=== PATIENT | female | born 1985 | race Caucasian/White ===

== ENCOUNTER 2018-11-10 08:49 | Day surgery (SDC) | payer BC ==
[2018-11-10 09:26] VITALS: BP 141/70; TEMP 98.6
[2018-11-10 09:32] VITALS: BMI 40.6
[2018-11-10 10:33] LABS: #Eosinphils 0.1 thou/uL (0.0-0.7); #Lymphocytes 1.7 thou/uL (1.20-3.40); #Monocytes 0.7 thou/uL (0.11-0.59); #Neutrophils 8.7 thou/uL (1.40-6.50); %Basophils 0.2 % (0.0-1.0); %Eosinophils 0.5 % (0.0-10.0); %Lymphocytes 15.3 % (21.0-51.0); %Monocytes 6.5 % (0.0-10.0); %Neutrophils 77.6 % (42.0-75.0); Hemoglobin 11.2 g/dL (12.0-16.0); Mean Corpuscular Hemoglobin 29.1 pg (27.0-31.0); Mean Corpuscular Volume 85.7 fL (78.0-98.0); Mean Platelet Volume 8.1 fL (7.4-10.4); Platelet Count 259 thou/uL (130-400); RBC Distribution Width 11.6 % (11.5-14.5); Red Blood Cell (RBC) Count 3.86 mill/uL (4.20-5.40); White Blood Cell (WBC) Count 11.2 thou/uL (4.8-10.8)
[2018-11-10 10:42] LABS: Creatinine, Urine 142.1 mg/dL (47-110)
[2018-11-10 10:50] LABS: ALT (SGPT) 7 U/L (8-55); AST (SGOT) 12 U/L (5-34); Albumin 3.1 g/dL (3.5-5.0); Alkaline Phosphatase 83 U/L (40-150); Anion Gap 10 mmol/L (10-20); BUN (Urea Nitrogen) 8 mg/dL (7.0-18.7); Bilirubin, Total 0.3 mg/dL (0.2-1.2); Calc. Creatinine Clearance 205 mL/min (70-130); Calcium 8.7 mg/dL (7.8-10.44); Carbon Dioxide 25 mmol/L (22-29); Chloride 107 mmol/L (98-107); Estimated GFR-MDRD Greater than 90; Globulin 2.6 g/dL (2.4-3.5); Glucose 83 mg/dL (70-105); Potassium 4.1 mmol/L (3.5-5.1); Protein, Total 5.7 g/dL (6.0-8.3); Sodium 138 mmol/L (136-145)
--- NOTE | 2018-11-10 11:06 | PDOC.LDHP ---
Labor and Delivery H&P Chief complaint: other (elevated blood pressure) HPI: 33 y/o at 33w1d, patient of Dr. Barksdale, presents with elevated BPs at work. Patient reports they were 160s systolic at work so she came in to be evaluated. Denies VB, LOF, ctx, MORROW, vision changes, RUQ pain or other concerns. +FM ROS neg for HEENT, cv, pulm, gi, gu, neuro, psych, skin, musculoskeletal or constitutional symptoms other than mentioned above. OB History Details: 2 prior LTCS at term, uncomplicated pregnancies Current complications: none Past Medical History: None Previous surgical history: low tranverse CS (x2,), cholecystectomy, other ( gastric sleeve, knee surgery) Allergies/Adverse Reactions: Allergies Allergy/AdvReac Type Severity Reaction Status Date / Time No Known Allergies Allergy Unverified 11/10/18 09:31 Social history: none - Physical Exam Vital signs reviewed and normal: yes Abnormal vital signs: normal to mild range BPs General: NAD, resting Lungs: nonlabored breathing Abdomen: gravid Extremeties: no edema FHT: category 1 (130s, mod variability, + accels, no decels) [place] contractions every: none - Assessment 33 y/o at 33w1d with gestational hypertension, no e/o preeclampsia at this time. Labs wnl. status reassuring with reactive NST. - Plan -: D/c home with precautions. Advised to keep all appointments.
== END 2018-11-10 11:25 | disposition home or self-care (01) ==
LOC: L&D/OP 08:49
PROVIDERS: ATTEND Obstetrics & Gynecology
DX: O13.3 Gestational [pregnancy-induced] hypertension without significant proteinuria, third trimester (principal); Z79.899 Other long term (current) drug therapy; Z3A.33 33 weeks gestation of pregnancy
CPT/HCPCS: 36415; 80053; 82570; 84156; 85025; 99284

== ENCOUNTER 2018-12-15 10:42 | Inpatient (IN) | payer BC ==
[2018-12-15 11:11] VITALS: BMI 41.6
[2018-12-15] MEDS ORDERED: Acetaminophen 325 MG TAB PO SCH (12:15)
[2018-12-15 13:08] LABS: Mean Corpuscular HGB CONC 33.6 g/dL (32.0-36.0); Mean Corpuscular Hemoglobin 28.2 pg (27.0-31.0); Mean Corpuscular Volume 83.7 fL (78.0-98.0); Platelet Count 223 thou/uL (130-400); RBC Distribution Width 12.1 % (11.5-14.5); Red Blood Cell (RBC) Count 3.92 mill/uL (4.20-5.40); White Blood Cell (WBC) Count 9.7 thou/uL (4.8-10.8)
[2018-12-15 13:31] LABS: ALT (SGPT) 10 U/L (8-55); AST (SGOT) 17 U/L (5-34); Albumin 3.2 g/dL (3.5-5.0); Alkaline Phosphatase 109 U/L (40-150); Anion Gap 12 mmol/L (10-20); BUN (Urea Nitrogen) 9 mg/dL (7.0-18.7); Bilirubin, Total 0.3 mg/dL (0.2-1.2); Calc. Creatinine Clearance 181 mL/min (70-130); Calcium 8.9 mg/dL (7.8-10.44); Carbon Dioxide 22 mmol/L (22-29); Chloride 108 mmol/L (98-107); Estimated GFR-MDRD 82; Globulin 2.7 g/dL (2.4-3.5); Glucose 71 mg/dL (70-105); Potassium 4.3 mmol/L (3.5-5.1); Protein, Total 5.9 g/dL (6.0-8.3); Sodium 138 mmol/L (136-145)
[2018-12-15 14:08] LABS: Bilirubin Negative (Negative); Blood, Urine Negative (Negative); Clarity CLEAR (Clear); Glucose, Urine (Dipstick) Negative (Negative); Leukocyte Negative (Negative); Nitrite Negative (Negative); Protein, Urine (Dipstick) Negative (Neg-Trace); Specific Gravity, Urine 1.012 (1.002-1.036); Urobilinogen 0.2 mg/dL (0.2-1.0)
[2018-12-15] MEDS: Lactated Ringer's 1,000 ML IV SCH (16:10)
[2018-12-15] MEDS ORDERED: ePHEDrine 50 MG/ML VIAL ONE (16:20)
[2018-12-15] MEDS ORDERED: Meperidine HCl/PF 25 MG/ML VIAL IM/IV PRN (16:41)
[2018-12-15] MEDS ORDERED: Butorphanol Tartrate 1 MG/ML VIAL SLOW IVP PRN (16:41)
[2018-12-15] MEDS ORDERED: Zolpidem Tartrate 5 MG TAB PO PRN (16:41)
[2018-12-15] MEDS ORDERED: Ondansetron PF 4 MG/2 ML Vial IVP PRN ×2 (16:41→21:31)
[2018-12-15] MEDS ORDERED: Acetaminophen 500 MG TAB PO PRN (16:41)
[2018-12-15] MEDS ORDERED: Promethazine HCl 25 MG/ML VIAL IM PRN ×2 (16:41→21:31)
[2018-12-15] MEDS ORDERED: Bicitra 30 ML UDCUP ONE (21:01)
[2018-12-15] MEDS ORDERED: Ondansetron HCl/PF 4 MG/2 ML Vial IVP PRN (21:31)
[2018-12-15] MEDS ORDERED: Promethazine HCl 25 MG SUPP PR PRN (21:31)
[2018-12-15] MEDS ORDERED: Hydrocerin (Eucerin) Cream 120 gm Jar TOP PRN (21:31)
[2018-12-15] MEDS ORDERED: diphenhydrAMINE 50 MG/ML VIAL IVP PRN (21:31)
[2018-12-15] MEDS ORDERED: Naloxone HCl 0.4 mg/ml Vial IV PRN (21:31)
[2018-12-15] MEDS ORDERED: Naloxone HCl 0.4 mg/ml Vial IVP PRN ×2 (21:31)
[2018-12-15] MEDS ORDERED: Oxytocin 10 UNITS/ML VIAL ONE (21:32)
[2018-12-15] MEDS ORDERED: MORPHINE 5 MG/10 ML PF VIAL ONE (21:32)
[2018-12-15] MEDS ORDERED: Acetaminophen 1,000 MG in Premix Bag 1 BAG IVPB PRN (21:32)
[2018-12-15] MEDS ORDERED: ePHEDrine/0.9% NaCl/PF SYRINGE 50 mg/10 ml ONE (21:32)
[2018-12-15] MEDS ORDERED: Ondansetron PF 4 MG/2 ML Vial ONE (21:32)
--- NOTE | 2018-12-15 21:37 | HP ---
REGULAR PHYSICIAN: Brandan Barksdale MD. EVALUATING PHYSICIAN: Warren Baugh MD CHIEF COMPLAINT: Elevated blood pressures in the office. HISTORY OF PRESENT ILLNESS: Ms. Carlson is a 33-year-old white G4, P3-0-0-3 with an estimated date of confinement of 12/28/2018, who presents from Dr. Barksdale's office with blood pressures to 170s there. She states she has had a mild headache over the last 4 days despite taking Tylenol. She denies right upper quadrant pain or visual changes. She also denies loss of fluid, bleeding, or contractions. Her care has been with Dr. Barksdale without significant complications. PAST OBSTETRICAL HISTORY: Includes 3 previous C-sections at term. PAST MEDICAL HISTORY: None. PAST SURGICAL HISTORY: x3, tonsillectomy, surgery to her right knee, gastric sleeve placement, and cholecystectomy. CURRENT MEDICATIONS: vitamins. ALLERGIES: NO KNOWN ALLERGIES. SOCIAL HISTORY: Denies tobacco, alcohol, or drug use. FAMILY HISTORY: Unremarkable. REVIEW OF SYSTEMS: Positive for mild headache. Negative for visual changes, right upper quadrant pain, nausea, vomiting, fever, chills, ruptured membranes, or vaginal bleeding. PHYSICAL EXAMINATION: VITAL SIGNS: Initial blood pressure in triage is 172/90. Subsequent pressures are 131/59, 132/68, 123/63, and 125/65. She is afebrile. GENERAL: She is in no acute distress. CHEST: Clear to auscultation. CARDIOVASCULAR: Regular rate and rhythm. ABDOMEN: Soft, nontender, and gravid. PELVIC: Deferred. heart rate tracing is reassuring with spontaneous accelerations. There are no decelerations. No significant uterine contractions are seen. LABORATORY DATA: White count 9.7, hemoglobin and hematocrit of 11.0 and 32.8, platelet count 223,000. Significant chemistries, creatinine 0.80, glucose 71, total bilirubin 0.3, AST and ALT are 17 and 10 respectively. ASSESSMENT: 1. 38-week intrauterine . 2. Three previous C-sections. 3. Labile blood pressure at term. PLAN: I have discussed the results with Dr. Barksdale. He will move toward delivery and schedule a time for her repeat section. Job ID: [id number]
[2018-12-15] MEDS ORDERED: Ketorolac Tromethamine 30 MG/ML VIAL IVP SCH (21:45)
[2018-12-15] MEDS ORDERED: Communication Order-Pharmacy FS SCH (21:45)
[2018-12-15] MEDS ORDERED: PHENYLEPHRINE-NS 100 MCG/ML 10 ML SYRINGE ONE (22:19)
[2018-12-15] MEDS ORDERED: Fentanyl 100 MCG/2 ML VIAL ONE (23:01)
[2018-12-16] MEDS ORDERED: Ketorolac Tromethamine 30 MG/ML VIAL ONE (00:29)
[2018-12-16] MEDS: Ketorolac Tromethamine 30 MG/ML VIAL IVP SCH ×4 (00:35→18:12)
[2018-12-16 00:58] LABS: Hemoglobin 11.3 g/dL (12.0-16.0); Mean Corpuscular HGB CONC 33.8 g/dL (32.0-36.0); Mean Corpuscular Hemoglobin 28.3 pg (27.0-31.0); Mean Corpuscular Volume 83.6 fL (78.0-98.0); Mean Platelet Volume 9.5 fL (7.4-10.4); Platelet Count 215 thou/uL (130-400); RBC Distribution Width 12.1 % (11.5-14.5); Red Blood Cell (RBC) Count 3.99 mill/uL (4.20-5.40); White Blood Cell (WBC) Count 11.4 thou/uL (4.8-10.8)
[2018-12-16] MEDS ORDERED: NS / Oxytocin 40 units/1000ml 1,000 ML ONE (01:13)
[2018-12-16 01:35] LABS: HBSAg Index 0.34 S/CO (0-0.99); Hep B Surf Ag Non-Reactive S/CO (NonReactive)
[2018-12-16] MEDS: Lactated Ringer's 1,000 ML IV SCH (03:37)
[2018-12-16 04:13] LABS: Syphilis Antibody Nonreactive (Nonreactive); Syphilis Antibody Index 0.02 S/CO (<1.00 Non-Reactive)
[2018-12-16] MEDS ORDERED: Meperidine HCl/PF 25 MG/ML VIAL IM/IV PRN (09:00)
[2018-12-16] MEDS ORDERED: Butorphanol Tartrate 1 MG/ML VIAL SLOW IVP PRN (09:00)
[2018-12-16] MEDS: Enoxaparin Sodium 40 MG/0.4 ML SYRINGE SC SCH (09:11)
[2018-12-16] MEDS ORDERED: Bisacodyl 10 MG SUPP PR PRN (09:18)
[2018-12-16] MEDS ORDERED: Zolpidem Tartrate 5 MG TAB PO PRN (09:18)
[2018-12-16] MEDS ORDERED: Simethicone Chewable 80 MG TAB PO PRN (09:18)
[2018-12-16] MEDS ORDERED: Ondansetron PF 4 MG/2 ML Vial IVP PRN (09:18)
[2018-12-16] MEDS ORDERED: Varicella virus, LIVE 0.5 ML VIAL SC ONE (09:18)
[2018-12-16] MEDS ORDERED: Promethazine HCl 25 MG/ML VIAL IM PRN (09:18)
[2018-12-16] MEDS ORDERED: Measles/Mumps/Rubella 10 MCG/0.5 ML VIAL SC ONE (09:18)
[2018-12-16] MEDS ORDERED: Lanolin Ointment 7 GM TUBE TOP PRN (09:18)
[2018-12-16] MEDS ORDERED: diphenhydrAMINE 25 MG CAP PO PRN (09:18)
[2018-12-16] MEDS ORDERED: Adacel (T-DAP) 0.5 ML SYRINGE IM ONE (09:18)
--- NOTE | 2018-12-16 09:20 | PDOC.PP ---
Post Progress Note Post Day #: 1 PO intake tolerated: yes Flatus: no Ambulation: no Vital Signs (12 hours) Temp Pulse Resp BP Pulse Ox 12/16/18 08:28 98.2 F 66 20 110/56 L 97 12/16/18 03:00 98.1 F 69 18 125/58 L 96 12/16/18 01:45 98.2 F 70 18 121/87 Weight Weight 258 lb - Physical Examination General: NAD Cardiovascular: no m/r/g, RRR Respiratory: clear to auscultation bilaterally Abdominal: + bowel sounds, lochia, no distention, appropriately TTP Extremities: negative homans (B) Skin: CS incision dry & intact, no rash Neurological: no gross focal deficits Psychiatric: A&Ox3, normal affect Result Diagrams: 12/16/18 00:50 12/15/18 12:53 Additional Labs: Post Labs Blood Type O POSITIVE 12/16/18 00:58 Hep Bs Antigen Non-Reactive S/CO (NonReactive) 12/16/18 00:50
[2018-12-16] MEDS ORDERED: NS / Oxytocin 40 units/1000ml 1,000 ML IV SCH (09:30)
[2018-12-16] MEDS ORDERED: HYDROcodone/Acetaminophen 5/325 mg Tablet PO PRN (09:45)
[2018-12-16] MEDS: Ibuprofen 800 MG TAB PO SCH ×2 (13:33→22:10)
[2018-12-16] MEDS: HYDROcodone/Acetaminophen 5/325 mg Tablet PO PRN (20:08)
[2018-12-16] MEDS: Docusate Calcium (SURFAK) 240 MG CAP PO SCH (22:10)
[2018-12-17] MEDS: Ketorolac Tromethamine 30 MG/ML VIAL IVP SCH ×2 (02:52→05:36)
[2018-12-17] MEDS: Ibuprofen 800 MG TAB PO SCH ×3 (05:33→21:36)
[2018-12-17 07:42] LABS: Mean Corpuscular HGB CONC 32.7 g/dL (32.0-36.0); Mean Corpuscular Hemoglobin 27.7 pg (27.0-31.0); Mean Corpuscular Volume 84.5 fL (78.0-98.0); Mean Platelet Volume 9.6 fL (7.4-10.4); Platelet Count 213 thou/uL (130-400); RBC Distribution Width 12.4 % (11.5-14.5); White Blood Cell (WBC) Count 12.6 thou/uL (4.8-10.8)
[2018-12-17] MEDS: Docusate Calcium (SURFAK) 240 MG CAP PO SCH ×2 (08:26→23:15)
[2018-12-17] MEDS: Enoxaparin Sodium 40 MG/0.4 ML SYRINGE SC SCH (08:26)
[2018-12-17] MEDS: Prenatal Vitamin 1 TAB PO SCH (08:26)
[2018-12-17] MEDS: HYDROcodone/Acetaminophen 5/325 mg Tablet PO PRN ×2 (10:54→18:29)
--- NOTE | 2018-12-17 13:46 | PDOC.PP ---
Post Progress Note Post Day #: 2 PO intake tolerated: yes Flatus: yes Ambulation: yes Vital Signs (12 hours) Temp Pulse Resp BP Pulse Ox 12/17/18 12:24 98.7 F 74 20 139/84 12/17/18 08:52 98.5 F 68 16 138/64 97 12/17/18 08:10 97 12/17/18 05:20 98.1 F 79 18 127/80 Weight Weight 258 lb - Physical Examination General: NAD Cardiovascular: no m/r/g, RRR Respiratory: clear to auscultation bilaterally Abdominal: + bowel sounds, lochia, no distention, appropriately TTP Extremities: negative homans (B) Skin: CS incision dry & intact, no rash Neurological: no gross focal deficits Psychiatric: A&Ox3, normal affect Result Diagrams: 12/17/18 07:04 12/15/18 12:53 Additional Labs: Post Labs Blood Type O POSITIVE 12/16/18 00:58 Hep Bs Antigen Non-Reactive S/CO (NonReactive) 12/16/18 00:50 Rubella IgG Antibody 0.93 index (Immune >0.99) L 12/16/18 00:50
--- NOTE | 2018-12-17 13:50 | PDOC.LDHP ---
Labor and Delivery H&P Chief complaint: scheduled section HPI: 33 year old at 38 w and 1 day, Morbid Obesity, GHTN, Hx BTL with IVF , AMA, presents to clinic with BP in 170's over 100s and severe persistent MORROW. Negative work up for preeclampsia on L&D, but 2nd documented SBP in the 170s. Repeat 4th added on today after 8 hours of NPO. Current gestational age (weeks): 38 Due date: 12/28/18 Grav: 4 Para: 3 Current complications: gestational hypertension Abnormal US findings: No Current medications: pre-adalid vitamins Previous surgical history: low tranverse CS Allergies/Adverse Reactions: Allergies Allergy/AdvReac Type Severity Reaction Status Date / Time No Known Allergies Allergy Verified 12/15/18 11:12 Social history: none - Physical Exam Vital signs reviewed and normal: yes General: NAD, resting Heart: RRR Lungs: nonlabored breathing Abdomen: NTTP Extremeties: no edema FHT: category 1 - Assessment L&D Assessment: scheduled repeat section - Plan Plan: admit to L&D, to OR for section
[2018-12-18] MEDS: HYDROcodone/Acetaminophen 5/325 mg Tablet PO PRN ×2 (04:35→08:50)
[2018-12-18] MEDS: Ibuprofen 800 MG TAB PO SCH (06:36)
[2018-12-18] MEDS: Prenatal Vitamin 1 TAB PO SCH (08:50)
[2018-12-18] MEDS: Enoxaparin Sodium 40 MG/0.4 ML SYRINGE SC SCH (08:50)
[2018-12-18] MEDS: Docusate Calcium (SURFAK) 240 MG CAP PO SCH (08:50)
[2018-12-18 09:41] VITALS: BP 143/80; TEMP 98.5
--- NOTE | 2018-12-20 09:50 | OP ---
DATE OF PROCEDURE: 12/15/2018 PREOPERATIVE DIAGNOSIS: Intrauterine at 38 weeks and 1 day with a term medical fourth section for gestational hypertension with severe range blood pressures and persistent headache. POSTOPERATIVE DIAGNOSIS: Intrauterine at 38 weeks and 1 day with a term medical fourth section for gestational hypertension with severe range blood pressures and persistent headache. PROCEDURE PERFORMED: Repeat low-transverse section using a Pfannenstiel skin incision. FINDINGS: Viable male infant weighing 3145 g or 6 pounds 15 ounces, Apgars 8 and 9. Also, it was noted the patient had a prior bilateral tubal ligation. QUANTITATIVE BLOOD LOSS: 525 mL. COMPLICATIONS: None. DETAILS OF THE PROCEDURE: The patient was consented and taken back to the operating room where spinal anesthesia was found to be adequate. She was then prepped and draped in the normal sterile fashion. A timeout was performed by the entire operative team. The incision was then marked with a marking pen tested using sharp pickups. An incision was then made with a scalpel. The incision was carried through the adipose tissue down to the underlying rectus fascia using both sharp dissection as well as cautery. Once the fascia was identified, it was incised in the midline and then the fascial incision was carried through in both lateral directions using sharp as well as cautery dissection techniques. Next, the superior aspect of the rectus fascia was grasped with 2 Mansi clamps, which was tented up and the rectus muscles were dissected off using blunt dissection as well as cautery dissection. Similarly, the inferior aspect of the fascial incision was grasped with 2 Mansi clamps, tented up and the rectus muscles were dissected off bluntly as well as sharply. Next, the rectus muscles were in the midline and the peritoneum identified. The peritoneum was then carefully grasped with 2 hemostats and entered sharply. The peritoneal incision was extended superiorly and inferiorly and bladder blade was placed in the lower abdomen. At this point, the uterus was identified and the bladder flap was then developed using pickups with teeth as well as Metzenbaum scissors in both lateral directions. The bladder flap was then dissected downwards using the operator coating furnace's finger as well as Metzenbaum scissors. The bladder blade was replaced. The lower uterine segment was then identified and entered sharply using a clean scalpel. The uterine incision was then dissected downwards until thin layer of muscle remained and this was entered bluntly using a hemostat to avoid any injury to the baby. The uterine incision was then stretched using two fingers in both lateral directions. An amniotomy was performed artificially using a hemostat and the baby was delivered using fundal pressure in a gentle fashion. Once out, the baby's mouth and nose were bulb suctioned, cord clamped and cut, and the baby was handed to waiting attendants. Next, the uterus was exteriorized, cleared of all clots and debris and the uterine incision was repaired with #1 Monocryl in a running locking fashion. A 2nd suture of the same type was used to obtain complete hemostasis at the uterine incision. The bladder flap was reapproximated using 3-0 Monocryl. Next, patient's left and right adnexa were inspected and appeared to be within normal limits. The posterior cul-de-sac was blotted dry and hemostasis assured. One more look at the uterine incision demonstrated hemostasis. Next, the uterus was replaced back within the abdomen. The peritoneum was reapproximated using 2-0 Monocryl without difficulty. The rectus muscles were then allowed to come back together and 0 chromic was used to aid in reapproximation of the muscle as necessary. The rectus fascia was then reapproximated in a running fashion using 0 Vicryl suture. The adipose tissue was then examined and appeared to be well approximated without any obvious separations. Finally, the skin was reapproximated with 3-0 Monocryl on a Carlos needle without difficulty and Dermabond adhesive was applied to the skin. Once the glue was dry, the drapes were removed and the patient was transferred to an ambulatory bed where she was taken to recovery awake and in stable condition. Sponge, lap, and needle counts were correct x3. Job ID: [id number]
== END 2018-12-18 13:30 | disposition home or self-care (01) | DRG 788 ==
LOC: L&D/OP 10:42 → L&D 18:46 → UNDODISIN 20:30 → L&D 12-16 00:09 → 3SW 12-16 01:39
PROVIDERS: ADMIT Obstetrics & Gynecology; ATTEND Obstetrics & Gynecology
PROC: 10D00Z1 Extraction of Products of Conception, Low, Open Approach (ICD-10-PCS; principal; 2018-12-15)
DX: O34.211 Maternal care for low transverse scar from previous cesarean delivery (principal); Z3A.38 38 weeks gestation of pregnancy; Z37.0 Single live birth; O13.4 Gestational [pregnancy-induced] hypertension without significant proteinuria, complicating childbirth; O99.844 Bariatric surgery status complicating childbirth; O99.214 Obesity complicating childbirth; E66.01 Morbid (severe) obesity due to excess calories
CPT/HCPCS: 36415; 51702; 80053; 81003; 85027; 86762; 86780; 86850; 86900; 86901; 87340; 99285; J0690; J1650; J1885; J2270; J2405; J2590; J3010; J3490

== ENCOUNTER 2019-10-28 10:28 | Outpatient (CLI) | payer BC ==
--- NOTE | 2019-10-28 12:17 | RAD ---
RIGHT SHOULDER 3 VIEWS: HISTORY: Right shoulder pain. FINDINGS/IMPRESSION: No fracture, dislocation, or bony destruction is identified. POS: TPC
== END 2019-10-28 10:29 | disposition home or self-care (01) ==
LOC: RAD 10:28
PROVIDERS: ATTEND Family Medicine
DX: M25.511 Pain in right shoulder (principal)

== ENCOUNTER 2020-07-03 10:32 | Outpatient (CLI) | payer BC ==
[2020-07-03] MEDS ORDERED: Gadobenate Dimeglumine 529 MG/1 ML (20ML VIAL) ONE (11:20)
[2020-07-03] MEDS ORDERED: Lidocaine 1% PF 10 ML AMP ONE (11:20)
[2020-07-03] MEDS ORDERED: EPINEPHrine 1 MG/ML AMP ONE (11:20)
[2020-07-03] MEDS ORDERED: Iopamidol 300 61% 50 ML VIAL FS ONE (11:20)
--- NOTE | 2020-07-03 12:10 | RAD ---
Right shoulder arthrogram fluoroscopic guided HISTORY: Internal derangement. FINDINGS: After explaining the procedure and answering all questions, the anterior aspect of the [facility] t shoulder was prepped and draped in usual sterile fashion. Sterile technique, buffered local anesthesia, fluoroscopic guidance, and an anterior approach were us ed to carefully advance the tip of a 22-gauge spinal needle to the joint capsule at the level of the humeral head. A total volume of 8 cc liquid mixture containing normal saline, 1% lidocaine, iodinated contrast, and small amounts of gadolinium and epinephrine were then instilled into the joint capsule under fluoroscopic control. Needle was removed and spot images obtained showing contrast confined to the yousuf int capsule. Patient tolerated the procedure well and was transferred to MRI in good condition for further imaging. IMPRESSION : Technically successful right shoulder arthrogram. No evidence of full-thickness rotator cuff tear. MR I is pending.
[2020-07-03] MEDS ORDERED: Magnevist 469MG/ML 20 ML VIAL ONE (13:14)
--- NOTE | 2020-07-03 13:14 | MRI ---
EXAM: MRI right shoulder with intra-articular contrast PROVIDED CLINICAL HISTORY: Shoulder pain COMPARISON: Arthrogram images 07/03/2020 FINDINGS: There is increased signal intensity involving the undersurface fibers of the cranial subscapularis te ndon, felt to be iatrogenic when correlating with the arthrographic images. The components of the rotator cuff demonstrate no definite evidence for tear. The glenoid labrum and glenohumeral articular cartilage appear preserved. Acromioclavicular joint osteoarthrosis is noted without significant mass effect upon the subjacent arriaza praspinatus. There is greater than physiologic subacromial subdeltoid bursal fluid, which does not demonstrate contrast. Regional marrow and muscular signal demonstrate no significant abnormality. IMPRESSION: Greater than physiologic subacromial subdeltoid bursal fluid, suggesting bursitis.
== END 2020-07-03 10:33 | disposition home or self-care (01) ==
LOC: RAD 10:32
PROVIDERS: ATTEND Family Medicine
DX: S43.431A Superior glenoid labrum lesion of right shoulder, initial encounter (principal)
CPT/HCPCS: 23350; A9577; A9579; J0171; J2001; Q9967